=== PATIENT | male | born 1975 | race Caucasian/White ===

== ENCOUNTER 2023-12-24 08:24 | Emergency (ER) | payer BC, SELFPAY ==
[2023-12-24 08:26] VITALS: BP 118/83; RESP 18; TEMP 36.8; O2SAT 99; BMI 27.8
--- NOTE | 2023-12-24 08:41 | XR_ITS ---
FINAL REPORT CLINICAL HISTORY: pain COMPARISON: None FINDINGS: LEFT KNEE 3 views of the left knee were obtained. There is no acute fracture or dislocation. Visualized joint spaces are normally aligned. There are small osteophytes of the posterior patella. A small joint effusion is present. Soft tissues are unremarkable. IMPRESSION: Small osteophytes of the posterior patella and a small joint effusion, without acute bony abnormality. Reviewed, Interpreted and Dictated by Rolf Nielsen MD Transcribed by Aliya Guzmán Authenticated and . [facility]
--- NOTE | 2023-12-24 09:13 | EXP.UTC ---
Discharge Plan Disposition Patient Disposition: Home, Self-Care Condition: Good Prescriptions Prescriptions: New ibuprofen [IBU] 800 mg tablet 800 mg PO Q8HP PRN (Reason: Moderate Pain) Qty: 30 0RF Referrals Follow up/Referrals: Raulito Carlos DO [Staff Physician] - See instructions Rhett Nation [Primary Care Provider] - See instructions Activity Restrictions/Add. Instructions Additional Instructions/Restrictions: Rest the extremity, Elevate the extremity as tolerated while you are resting. Take ibuprofen for pain. I sent in a prescription to your pharmacy. Follow up with Dr. Carlos (orthopedics). I put in a referral but you need to call his office and schedule an appointment. Follow up with your regular doctor. GO TO THE ER FOR ANY WORSENING SYMPTOMS Clinical Impressions Clinical Impression: Left knee pain, Effusion of left knee Stand Alone Forms Stand Alone Forms: Work/School Release Instructions Patient Instructions: How to Use Crutches, DI for Knee Effusion, How to Use a Knee Immobilizer Print Language Print Language: [place] Citizen Discharge ED Provider: Freeman Nicole [facility] General Stated complaint: AO 12-20-23 Mode of Arrival: Ambulatory Source of Information: Patient Limitations: No Limitations Time Seen by Provider: 12/24/23 09:12 Description of Symptoms (Recalled from Triage Doc. by RN): left knee pain,swollen HEENT Symptoms (Recalled from RN notes): No Resp Symptoms (Recalled from RN notes): No Skin Symptoms (Recalled from RN notes): No MS Symptoms (Recalled from RN notes): Yes Functional Status (Recalled from RN notes): na History of Present Illness Provider Complaint: He states that for the past 2 days he has had left knee pain and swelling. He denies any injury, but his symptoms began after he was swimming with his children and on the knee a lot. Related Data Previous Rx's ?Medication ?Instructions ?Recorded ibuprofen 800 mg tablet (IBU) 800 mg PO Q8HP PRN Moderate Pain 12/24/23 #30 tabs Worker's Comp Is this a Worker's Comp case?: No Is this an [facility] Worker's Comp?: No Is this a Rekha Worker's Comp?: No [facility] Disclaimer: The information contained in this section may have been updated after the patient was seen, as this information can be updated by other users. Social History Smoking Status: Former smoker alcohol intake: never current occupational status: employed Travel in the last 8 weeks: None ROS Obtained: Yes All systems reviewed & no additional complaints except as documented Constitutional Constitutional: Denies chills and Denies fever(s) Eyes Eyes: Denies eye discharge ENT Ears, Nose, Mouth, and Throat: Denies dizziness, Denies otalgia and Denies sore throat Cardiovascular Cardiovascular: Denies chest pain Respiratory Respiratory: Denies shortness of breath, Denies chest congestion, Denies cough, Denies stridor and Denies wheezing Gastrointestinal Gastrointestingal: Denies nausea or vomiting Musculoskeletal Musculoskeletal: Reports as per HPI Integumentary/Breasts Skin/Breast: Denies redness, Denies rash and Denies wounds Neurologic Neurologic: Denies dizziness and Denies paresthesias Allergic/Immunologic Allergic/Immunologic: Denies wheezing Physical Exam General General appearance: alert and in no apparent distress Head Head exam: atraumatic, normocephalic and normal inspection Eye Eye exam: Present normal appearance, PERRL and EOMI ENT ENT exam: Present normal exam, normal oropharynx, mucous membranes moist, TM's normal bilaterally and normal external ear exam Neck Neck exam: Present normal inspection, full ROM and trachea midline; Absent meningismus or lymphadenopathy Chest Chest inspection: Present normal inspection and symmetric chest wall rise; Absent tenderness Respiratory Respiratory exam: Present normal lung sounds bilaterally; Absent respiratory distress Cardiovascular Cardiovascular exam: Present regular rate and norm
[2023-12-24 09:50] VITALS: BP 118/83; PULSE 95; RESP 18; TEMP 36.8; O2SAT 99
== END 2023-12-24 09:51 | disposition home or self-care (01) ==
PROVIDERS: Emergency Provider Nurse Practitioner Family; PCP Family Medicine
DX: M25.562 Pain in left knee (principal); M25.462 Effusion, left knee
CPT/HCPCS: 73562; 99204; 99212; G0463

== ENCOUNTER 2024-06-02 12:54 | Emergency (ER) | payer BC, SELFPAY ==
[2024-06-02 14:30] VITALS: BP 127/70; PULSE 80; RESP 19; TEMP 36.8; O2SAT 100; BMI 29.4
--- NOTE | 2024-06-02 14:34 | EXP.UTC ---
Discharge Plan Disposition Patient Disposition: Home, Self-Care Condition: Good Referrals Follow up/Referrals: Rhett Nation [Primary Care Provider] - See instructions Activity Restrictions/Add. Instructions Additional Instructions/Restrictions: Continue wearing brace as instructed Take your Ibuprofen as you was prescribed Follow up with your Family Doctor and Orthopedics for further evaluation Clinical Impressions Clinical Impression: Acute carpal tunnel syndrome of right wrist Instructions Patient Instructions: Carpal Tunnel Syndrome, DI for Carpal Tunnel Syndrome Print Language Print Language: [place]ian Discharge ED Provider: Mek[facility] [place] HPI General Stated complaint: Pain in R wrist Mode of Arrival: Ambulatory Source of Information: Patient Limitations: No Limitations Time Seen by Provider: 06/02/24 14:34 Description of Symptoms (Recalled from Triage Doc. by RN): WANTING CORTIZONE SHOT TO WRIST HEENT Symptoms (Recalled from RN notes): No Resp Symptoms (Recalled from RN notes): No Skin Symptoms (Recalled from RN notes): No MS Symptoms (Recalled from RN notes): Yes Functional Status (Recalled from RN notes): NA History of Present Illness Provider Complaint: Patient states that he has hx of Carpal tunnel States that it has been bothering him for the last couple of days States that he came in today hoping to get an injection into his wrist to help it Related Data Allergies Allergy/AdvReac Type Severity Reaction Status Date / Time No Known Allergies Allergy Verified 06/02/24 14:43 Worker's Comp Is this a Worker's Comp case?: No [facility] Disclaimer: The information contained in this section may have been updated after the patient was seen, as this information can be updated by other users. Social History (Updated 12/24/23 @ 15:01 by Freeman Nicole APRN) Smoking Status: Former smoker alcohol intake: never current occupational status: employed Travel in the last 8 weeks: None Have you lived/traveled outside [place] in past 30 days?: No Contact w/someone who lives/traveled outside [place] past 30 days?: No Exposure to someone with infectious disease in past 14 days?: No Do you have a fever (greater than 100.4 F or 38 C)?: No Have you tested positive for COVID-19: No Exposed to someone with COVID-19 in past 14 days?: No Do you have a sore throat?: No Do you have a cough?: No Do you have any weakness?: No Do you have any diarrhea?: No Are you experiencing any unusual bleeding?: No Do you have any muscle aches/pain?: No Do you have any abdominal pain?: No Are you experiencing loss of taste or smell?: No ROS Obtained: Yes All systems reviewed & no additional complaints except as documented and Yes Systems reviewed as appropriate & no additional complaints except as documented Constitutional Constitutional: Reports system reviewed and no additional complaints, except as documented and Reports as per HPI ENT Ears, Nose, Mouth, and Throat: Reports system reviewed and no additional complaints, except as documented and Reports as per HPI Cardiovascular Cardiovascular: Reports system reviewed and no additional complaints, except as documented and Reports as per HPI Respiratory Respiratory: Reports system reviewed and no additional complaints, except as documented and Reports as per HPI Gastrointestinal Gastrointestingal: Reports system reviewed and no additional complaints, except as documented and as per HPI Musculoskeletal Musculoskeletal: Reports system reviewed and no additional complaints, except as documented, Reports as per HPI and Reports other (carpal tunnel pain in right wrist) Physical Exam General General appearance: alert and in no apparent distress Respiratory Respiratory exam: Present normal lung sounds bilaterally; Absent respiratory distress or wheezes Cardiovascular Cardiovascular exam: Present regular rate, normal rhythm and normal heart sounds Abdominal Exam Abdominal exam: Present soft and normal bowel sounds; Absent distention or tenderness Expanded Upper Extremity Exam Right: Forearm/Wrist exam: Present tenderness; Absent swelling, abrasion, ecchymosis, deformity or erythema Hand exam: Present normal inspection Vascular exam: Normal capillary refill and radial pulse Neurological Exam Neurological exam: Present alert, oriented X3 and normal gait Medical Decision Making Medical Records Screening: Per USPSTF and CDC recommendations, given the prevalence of disease in our region, it is our hospital?s policy to screen for HIV and viral Hepatitis for all patients aged 18 and over and those with ongoing risk factors. Alessandro Inquiry Pt receiving controlled substance: No Alessandro was queried for this patient: No Vital Signs: 06/02/24 14:30 Temperature 98.2 F Temperature Source Oral Pulse Rate [Left Radial] 80 Respiratory Rate 19 Blood Pressure [Right Arm] 127/70 Blood Pressure Mean [Right Arm] 89 02 Sat by Pulse Oximetry 100
[2024-06-02] MEDS: METHYLPREDNISOLONE SOD SUCC 125MG VIAL 125 MG IM (14:50)
[2024-06-02 15:02] VITALS: BP 127/70; PULSE 80; RESP 19; TEMP 36.8; O2SAT 100
== END 2024-06-02 15:05 | disposition home or self-care (01) ==
PROVIDERS: Emergency Provider Nurse Practitioner; PCP Family Medicine
DX: G56.01 Carpal tunnel syndrome, right upper limb (principal)
CPT/HCPCS: 99213; G0381; J2919